=== PATIENT | female | born 1950 | race Caucasian/White ===

== ENCOUNTER 2016-04-11 11:19 | Emergency (ER) | payer OTHER, MEDICARE ==
[~2016-04-11] VITALS: Ht 167.6 cm; Wt 99.8 kg
[~2016-04-11 11:19] MED LIST: AUGMENTIN 875875 MG PO; BYSTOLIC10 MG PO; CALCIUM 600600 M1 PO; MULTIVITAMIN1 TAB PO
[2016-04-11] MEDS ORDERED: METOPROLOL SUCC50 M2 PO (11:32)
[2016-04-11] MEDS ORDERED: OMEPRAZOLE40 M1 PO (11:33)
[2016-04-11] MEDS ORDERED: SUCRALFATE1 G1 PO (11:33)
--- NOTE | 2016-04-11 13:25 | ED HEADACHE COMPLAINT ---
History of Present Illness General Chief Complaint: Headache Stated Complaint: DEWITT, DIZZY Source: patient Exam Limitations: no limitations Vital Signs & Intake/Output Vital Signs & Intake/Output Vital Signs Date Time Temp Pulse Resp B/P Pulse O2 O2 Flow FiO2 Ox Delivery Rate 04/11 1413 97.0 86 18 158/78 98 Room Air 04/11 1128 96.9 82 20 171/97 98 Room Air Allergies Coded Allergies: NO KNOWN ALLERGIES (02/01/11) Triage Note: RECEIVED 65 YO FEMALE C/O HEADACHE AND DIZZINESS X 2 DAYS. +_ NAUSEA YESTERDAY, NO VOMITING. NO CHEST PAIN OR SOB. NO HX MIGRAINES X 10-15 YEARS. RIGHT FOREHEAD AREA H/A. Triage Nurses Notes Reviewed? yes Onset: Gradual Duration: constant Timing: recent history Quality/Severity: pressure, throbbing Severity Numbers: 8 Head Injury Location: frontal HPI: Patient is a 65-year-old female with a past medical history of hypertension GERD and remote history of migraines approximately 20 years ago. Patient states that yesterday she woke up with a right-sided frontal migraine headache in which the symptoms have been throbbing in nature persistent patient associated symptoms of photophobia nausea however patient is able tolerate by mouth and dizziness and room spinning sensation made worse with positional head changes. Patient is tried Tylenol with no relief of symptoms. Patient is hesitant on taking nonsteroidal anti-inflammatory medications due to remote history of gastric bypass. Patient denies any worsening headache of life or thunderclap acute onset symptoms of headache. Denies any neck pain back pain chest pain blurred vision, slurred speech or facial or extremity paresthesia or facial weakness. (CHENG GARDINER,VIRAL) Reconcile Medications Butalb/Acetaminophen/Caffeine (Fioricet 50-300-40 MG Capsule) 50 MG-300 MG-40 MG CAPSULE 1 TAB PO TID PRN MIGRAINE Calcium Carbonate (Calcium 600) (Unknown Strength) TAB (Unknown Dose) PO DAILY SUPPLEMENT (Reported) Lorazepam (Ativan) 0.5 MG TABLET 1 TAB PO BIDP PRN VERTIGO Meclizine HCl 25 MG TABLET 1 TAB PO TIDPRN PRN VERTIGO Metoprolol Succinate 50 MG TAB.ER.24H 1 TAB PO DAILY HIGH BLOOD PRESSURE ( Reported) Multivitamin (Multiple Vitamins) 1 EACH TABLET 1 TAB PO DAILY SUPPLEMENT ( Reported) Omeprazole 40 MG CAPSULE.DR 1 CAP PO DAILY HEARTBURN (Reported) Scopolamine Hydrobromide (Transderm-Scop) 1.5MG/3DAY PATCH.TD.3 1 PAT TOP Q3D VERTIGO apply to the hairless area behind 1 ear at least 4 hours before effect is required; reapply every 3 days as needed Scopolamine Hydrobromide (Transderm-Scop) 1.5MG/3DAY PATCH.TD.3 1 PAT TOP Q3D VERTIGO apply to the hairless area behind 1 ear at least 4 hours before effect is required; reapply every 3 days as needed Sucralfate 1 GRAM TABLET 1 TAB PO 4 TIMES/DAY ACID REFLUX (Reported) (DOMO TIPTON,AJAY Booker) Past History Travel History Traveled to [place] past 21 day No Medical History Any Pertinent Medical History? see below for history Neurological: NONE EENT: NONE Cardiovascular: hypertension Gastrointestinal: GERD Hepatic: NONE Renal: NONE Musculoskeletal: NONE Psychiatric: NONE Endocrine: NONE Pneumonia Vaccine: 12/27/07 Influenza Vaccine: 12/26/10 Surgical History Surgical History: non-contributory Psychosocial History Who do you live with Spouse Services at Home None What is your primary language Serbian Tobacco Use: Quit >30 days ago Family History Hx Contributory? No (VIRAL JOHNSON) Review of Systems Review of Systems Constitutional: Reports: no symptoms. Eyes: Reports: see HPI, photophobia. Denies: blindness, blurred vision, inflammation. Ears, Nose, Throat, Mouth: Reports: no symptoms. Respiratory: Reports: no symptoms. Cardiovascular: Reports: no symptoms. Gastrointestinal/Abdominal: Reports: see HPI, nausea. Denies: abdominal pain, vomiting. Genitourinary: Reports: no symptoms. Musculoskeletal: Reports: no symptoms. Skin: Reports: no symptoms. Neurological/Psychological: Reports: see HPI, headache. Hematologic/Endocrine: Reports: no symptoms. Endocrine: Reports: no symptoms. Immunologic/Allergic: Reports: no symptoms. All Other Systems: Reviewed and Negative (VIRAL JOHNSON) Physical Exam Physical Exam General Appearance: no apparent distress, alert, comfortable Cranial Nerves: normal hearing, normal speech, PERRL Comments: Well-developed well-nourished person in no acute distress HEENT: Normal EENT exam, extraocular motion intact, no nystagmus. Pupils equally round and reactive to light and accommodation. Nose is atraumatic. External auditory canal and Tympanic membranes clear. Pharynx normal. No swelling or edema. Neck: Supple, no lymphadenopathy, normal range of motion without pain or tenderness Back: Nontender, no CVA tenderness. Cardiovascular: Regular rate and rhythms no murmurs rubs or gallops, normal JVP Respiratory: Chest nontender. No respiratory distress.breath sounds clear to auscultation bilaterally Abdomen: Soft, nontender nondistended, no appreciable organomegaly. Normal bowel sounds. No ascites Extremity: No edema, no calf tenderness to palpation, normal and equal pulses. Neuro: Alert oriented x3, motor sensory normal, cranial nerves II through XII grossly intact. Modify Tory-Hallpike was positive for worsening ROOM spinning sensation when performed Skin: No appreciable rash on exposed skin, skin is warm and dry. Psych: Mood and affect is normal, memory and judgment is normal. Core Measures Severe Sepsis Present: No Septic Shock Present: No (VIRAL JOHNSON) Progress Differential Diagnosis: carotid dissection, cav sinus thromb, cluster DEWITT, encephalitis, IC mass/tumor, intracranial Hem., meningitis, migraine DEWITT, musculoskeletal pain, sinusitis, SSS thrombosis, subarach. Hem., tension DEWITT, temporal arteritis, TMJ syndrome, viral cephalgia Plan of Care: Orders Procedure Date/time Status EKG 04/11 1135 Active Due to history of present illness and exam findings or suspicion of migraine headache and positional vertigo symptoms. Patient denies any symptoms at this time and has little suspicion of subarachnoid hemorrhage or GIANT cell arteritis. Patient is able tolerate by mouth patient is in no apparent distress Patient had unremarkable physical exam findings and no neurological deficit was noted 04/11/2016 3:17:14 PM reevaluation the patient, patient states that she had significant improvement of her headache at rest she has no complaints however patient did try to ambulate an approximate 5 feet did note of worsening room spinning sensation. Patient will be given Ativan and be reevaluated. After by mouth Ativan was administered patient then ambulated under supervision of nurse's in which she had no complications and no exacerbation of presenting complaints and denies any dizziness or room spinning sensation. She had normal steady gait on discharge. Patient also had complete resolution of migraine headache symptoms. Patient was strongly advised to follow-up with the ENT doctor and to begin prophylactic treatment for positional vertigo concerns. (VIRAL JOHNSON) Initial ED EKG: NSR 72 BPM Prior EKG: unchanged (VIRAL JOHNSON) Departure Departure Disposition: HOME OR SELF CARE Condition: Stable Clinical Impression Primary Impression: Migraine Secondary Impressions: Vertigo, benign positional Referrals: DELFINA TIPTON,RM GENAO MD,SYL (PCP/Family) Additional Instructions: As discussed begin the prescription of Fioricet for future migraines as directed. Given the prescription of scopolamine patches to prevent room spinning sensation. Begin the prescription of meclizine as directed for room spinning sensation. And begin the prescription of Ativan for breakthrough room spinning relief. If no better in 2 days follow-up with your nose and throat DR. MATHIS for further evaluation treatment. If symptoms worsen return to emergency room. Departure Forms: Customer Survey General Discharge Information (VIRAL JOHNSON) Departure Prescriptions: Current Visit Scripts Scopolamine Hydrobromide (Transderm-Scop) 1 PAT TOP Q3D #4 PAT apply to the hairless area behind 1 ear at least 4 hours before effect is required; reapply every 3 days as needed Butalb/Acetaminophen/Caffeine (Fioricet 50-300-40 MG Capsule) 1 TAB PO TID PRN MIGRAINE #15 Lorazepam (Ativan) 1 TAB PO BIDP PRN VERTIGO #8 TAB Scopolamine Hydrobromide (Transderm-Scop) 1 PAT TOP Q3D #4 PAT apply to the hairless area behind 1 ear at least 4 hours before effect is required; reapply every 3 days as needed Meclizine HCl 1 TAB PO TIDPRN PRN VERTIGO #21 TAB PA/INJECTION MOLDING TECHNICIAN Co-Sign Statement Statement: ED Attending supervision documentation- [X] I saw and evaluated the patient. I have also reviewed all the pertinent lab results and diagnostic results. I agree with the findings and the plan of care as documented in the PA's/INJECTION MOLDING TECHNICIAN's documentation. [] I have reviewed the ED Record and agree with the PA's/INJECTION MOLDING TECHNICIAN's documentation. [] Additions or exceptions (if any) to the PAs/INJECTION MOLDING TECHNICIAN's note and plan are summarized below: [] (DOMO TIPTON,AJAY Booker)
[2016-04-11 14:13] VITALS: BP 158/78
[2016-04-11] MEDS ORDERED: FIORICET 50-301 EACH PO (16:32)
[2016-04-11] MEDS ORDERED: ATIVAN0.5 M1 PO (16:32)
[2016-04-11] MEDS ORDERED: MECLIZINE HCL25 MG PO (16:32)
[2016-04-11] MEDS ORDERED: TRANSDERM-SCOP1 EACH TOP (16:32)
[2016-04-16] MEDS ORDERED: TRANSDERM-SCOP1 EACH TOP (09:24)
== END 2016-04-11 16:38 ==
LOC: ERH 11:19
DX: G43.909 Migraine, unspecified, not intractable, without status migrainosus (principal); H81.10 Benign paroxysmal vertigo, unspecified ear
CPT/HCPCS: 93005; 93010